=== PATIENT | male | born 1970 | race Caucasian/White ===

== ENCOUNTER 2025-01-08 08:05 | Emergency (ER) | payer OTHER ==
[~2025-01-08] VITALS: Ht 175.3 cm; Wt 96.4 kg
[2025-01-08] MEDS ORDERED: LISI-892 PO (08:10)
[2025-01-08] MEDS: METOPROLOL TARTRATE 5 MG/5 ML VIAL IVP ONE (08:24)
[2025-01-08] MEDS: ONDANSETRON HCL 4 MG/2 ML VIAL IVP ONE ×2 (08:31→13:55)
[2025-01-08] MEDS: MORPHINE SULFATE 2 MG/ML SYRINGE IVP ONE (08:32)
[2025-01-08 08:34] LABS: BASOPHILS % (AUTO) 0.9 % (0.0-2.0); EOSINOPHILS % (AUTO) 1.1 % (1.0-6.0); HEMATOCRIT 49.1 % (41-53); HEMOGLOBIN 16.8 g/dL (13.5-17.5); LYMPHOCYTES # (AUTO) 1.5 K/uL (1.0-4.8); LYMPHOCYTES % (AUTO) 20.2 % (22.0-44.0); MEAN CORPUSCULAR HEMOGLOBIN 32.2 pg (26.0-34.0); MEAN CORPUSCULAR HGB CONC 34.3 G/dL (31.0-37.0); MEAN CORPUSCULAR VOLUME 94 fL (80-100); MONOCYTES # (AUTO) 0.8 K/uL (0.1-1.0); MONOCYTES % (AUTO) 10.8 % (2.0-9.0); NEUTROPHILS # (AUTO) 4.8 K/uL (1.8-7.7); PLATELET COUNT (AUTO) 194 K/uL (150-450); RED BLOOD CELL COUNT(AUTO) 5.23 MIL/uL (4.50-5.90); RED CELL DISTRIBUTION WIDTH 15.5 % (11.5-14.5); WHITE BLOOD COUNT (AUTO) 7.2 K/uL (4.5-11.0)
[2025-01-08 08:37] LABS: ANION GAP 6 mmol/L (8-16); CALCIUM, TOTAL 9.2 mg/dL (8.8-10.5); CARBON DIOXIDE 30 mmol/L (22-29); CHLORIDE 106 mmol/L (98-107); CREATININE 1.07 mg/dL (0.60-1.30); GLOMERULAR FILTR. RATE CALC > 60 mL/min (>60); GLUCOSE,RANDOM 124 mg/dL (70-110); SODIUM SERUM 142 mmol/L (136-145); UREA NITROGEN, BLOOD 14 mg/dL (7-18)
[2025-01-08 08:46] LABS: TROPONIN I-HIGH SENSITIVITY Less Than 4 ng/L (<76)
[2025-01-08] MEDS: FentaNYL CITRATE PF 100 MCG/2 ML VIAL IVP ONE ×2 (09:55→11:21)
[2025-01-08 10:07] LABS: ALBUMIN 3.6 g/dL (3.4-5.0); BILIRUBIN,DIRECT 0.1 mg/dL (0.00-0.20); BILIRUBIN,TOTAL 0.5 mg/dL (0.1-1.0); TOTAL PROTEIN, SERUM 6.9 g/dL (6.4-8.2)
[2025-01-08 10:59] VITALS: O2SAT 99
[2025-01-08] MEDS ORDERED: SERT-438 PO (11:17)
[2025-01-08] MEDS ORDERED: ALPR0.255 PO (11:17)
[2025-01-08] MEDS ORDERED: LISI10TA24 PO (11:17)
[2025-01-08] MEDS: LORazepam 2 MG/ML VIAL IVP ONE (11:22)
[2025-01-08] MEDS: SODIUM CHLORIDE 0.9% 2,900 ML IV ONE (13:54)
[2025-01-08] MEDS: HYDROmorphone HCL 2 MG/ML SYRINGE IVP ONE ×2 (13:55→15:19)
[2025-01-08 14:25] VITALS: BP 158/101; PULSE 99; RESP 16; TEMP 98.7
== END 2025-01-08 15:25 | disposition short-term general hospital (02) ==
LOC: EMS 08:13
DX: K80.42 Calculus of bile duct with acute cholecystitis without obstruction (principal); I10 Essential (primary) hypertension; R10.13 Epigastric pain; Z79.899 Other long term (current) drug therapy
CPT/HCPCS: 99285; 96375; 74176; 96374; 76700; 96361; 71045; 80048; 80076; 83690; 84484; 85025; 93005; 96376; 36415; J3010; J1171; J2060; J3490; J2270; J2405; J7030